=== PATIENT | female | born 1950 | race Two or more races ===

== ENCOUNTER 2024-02-18 13:28 | Emergency (ER) | payer MEDICARE, OTHER ==
[~2024-02-18] VITALS: Ht 165.1 cm; Wt 72.7 kg
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
[2024-02-18] MEDS ORDERED: METF-370 PO (17:25)
[2024-02-18] MEDS ORDERED: ACET-1080 PO (17:25)
[2024-02-18 17:30] VITALS: BP 110/59; PULSE 80; RESP 18; TEMP 98.6; O2SAT 96
== END 2024-02-18 17:29 | disposition home or self-care (01) ==
LOC: ER 13:28
DX: S46.812A Strain of other muscles, fascia and tendons at shoulder and upper arm level, left arm, initial encounter (principal); M17.12 Unilateral primary osteoarthritis, left knee; V43.52XA Car driver injured in collision with other type car in traffic accident, initial encounter; Y93.I9 Activity, other involving external motion; Y92.488 Other paved roadways as the place of occurrence of the external cause; Y99.8 Other external cause status
CPT/HCPCS: 73030; 73562

== ENCOUNTER 2024-03-10 11:45 | Emergency (ER) | payer MEDICARE, OTHER ==
[~2024-03-10] VITALS: Ht 165.1 cm; Wt 70.9 kg
[~2024-03-10 11:45] MED LIST: ACET-1080 PO; METF-370 PO
[2024-03-10 12:37] VITALS: BP 112/64; PULSE 74; RESP 18; TEMP 97.8; O2SAT 97
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
[2024-03-10] MEDS: ACETAMINOPHEN 325 MG TAB PO ONE (12:41)
--- NOTE | 2024-03-10 13:10 | DVH ---
INDICATION: NECK PAIN TO LEFT SHOULDER COMPARISON: None TECHNIQUE: 3 views of the cervical spine were obtained. FINDINGS: The cervical vertebral alignment is normal. The predental space is normal. There is intervertebral disc space narrowing at C5-C6. The intervertebral disc spaces are otherwise maintained. No acute fracture, vertebral compression deformity or aggressive osseous lesions. The imaged lung apices are unremarkable. IMPRESSION: 1. No acute fracture. 2. Mild intervertebral disc degeneration at C5-C6.
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
[2024-03-10] MEDS ORDERED: METH-1181 PO (13:23)
== END 2024-03-10 13:34 | disposition home or self-care (01) ==
LOC: ER 11:45
DX: G44.209 Tension-type headache, unspecified, not intractable (principal); M50.30 Other cervical disc degeneration, unspecified cervical region
CPT/HCPCS: 70450; 72040

== ENCOUNTER 2024-09-11 12:32 | Inpatient (IN) | payer MEDICARE, OTHER ==
[~2024-09-11] VITALS: Ht 165.1 cm; Wt 70.3 kg
[~2024-09-11 12:32] MED LIST changes: +METH-1181 PO
[2024-09-11 13:20] LABS: Urine Protein, UAD Negative (Negative)
[2024-09-11 13:30] LABS: Hematocrit 40.2 % (36.0-46.0); Hemoglobin 13.8 g/dL (12.2-16.2); Mean Corpuscular Hemoglobin 32.4 pg (28.0-32.0); Mean Corpuscular Volume 94.2 fL (80.0-100.0); Nucleated Red Blood Cells % 0.1 %
--- NOTE | 2024-09-11 13:33 | ED.PDOC ---
General HPI Comments 74 y/o F, with no prior medical history presents to the ED for CC of flank pain. Patient states, she has been experiencing right flank pain that radiates to her abdomen [id number] which has now worsened in the past x3days. Patient relays, associated symptoms of urinary frequency with decreased urinary output. Patient reports, being seen at [facility] for SS and being relayed to the ED for a further evaluation. Patient denies fever, chills, sweats, nausea, vomiting, or diarrhea. No other associated symptoms, modifiers, recent injuries or sick contacts present at this time. Chief Complaint: Flank Pain Time Seen by MD: 13:25 Primary Care Provider: Rupinder Adams notes: Nurses Notes, Medications, Allergies Allergies: Coded Allergies: NO KNOWN ALLERGIES (Unverified , 03/10/24) Home Meds Active Scripts Methocarbamol (Methocarbamol) 500 Mg Tab, 500 MG PO BID, #20 TAB Prov:SUSHMA KILPATRICK 03/10/24 Acetaminophen (Tylenol 8 Hour Arthritis) 650 Mg Tab, 650 MG PO TID, #30 TAB Prov:SUSHMA KILPATRICK 03/10/24 Metformin Hydrochloride (Metformin Hcl) 500 Mg Tab, 1 TAB PO BID, #20 TAB Prov:SUSHMA KILPATRICK 02/18/24 Acetaminophen (Tylenol 8 Hour Arthritis) 650 Mg Tab, 650 MG PO TID, #30 TAB Prov:SUSHMA KILPATRICK 02/18/24 Information Source: Patient Mode of Arrival: Ambulatory Severity: Moderate Inability to void: None Timing: Months Duration: Since onset Prehospital treatment: None Onset: Spontaneous Symptoms: Frequency History of: None Location: (R) Flank Modifying factors: None associated signs and symptoms: Flank Pain, Frequency Past Medical History PAST MEDICAL HISTORY: Denies Surgical History: Denies all surgeries PATTERN PUNCHER History: No Pertinent PATTERN PUNCHER History Family History Family History: Reviewed,noncontributory to illness Social History Smoker: Non-Smoker Alcohol: Denies ETOH Use Drugs: Denies Drug Use Lives In: Home Constitutional: denies: chills, diaphoresis, fatigue, fever, malaise, sweats, weakness, others EENTM: denies: blurred vision, double vision, ear bleeding, ear discharge, ear drainage, ear pain, ear ringing, eye pain, eye redness, hearing loss, mouth pain, mouth swelling, nasal discharge, nose bleeding, nose congestion, nose pain, photophobia, tearing, throat pain, throat swelling, voice changes, others Respiratory: denies: cough, hemoptysis, orthopnea, SOB at rest, shortness of breath, SOB with excertion, stridor, wheezing, others Cardiovascular: denies: chest pain, dizzy spells, diaphoresis, Dyspnea on exertion, edema, irregular heart beat, left arm pain, lightheadedness, palpitations, PND, syncope, others Gastrointestinal: denies: abdomen distended, abdominal pain, blood streaked bowels, constipated, diarrhea, dysphagia, difficulty swallowing, hematemesis, melena, nausea, poor appetite, poor fluid intake, rectal bleeding, rectal pain, vomiting, others Genitourinary: reports: flank pain, frequency; denies: abnormal vagina bleeding, burning, dyspareunia, dysuria, hematuria, incontinence, pain, , vagina discharge, urgency, others Neurological: denies: dizziness, fainting, headache, left sided numbness, left sided weakness, numbness, paresthesia, pre-existing deficit, right sided numbness, right sided weakness, seizure, speech problems, tingling, tremors, weakness, others Musculoskeletal: denies: back pain, gout, joint pain, joint swelling, muscle pain, muscle stiffness, neck pain, others Integumetry: denies: bruises, change in color, change in hair/nails, dryness, laceration, lesions, lumps, rash, wounds, others Allergic/Immunocompromised: denies: Difficulty Healing, Frequent Infections, Hives, Itching, others Hematologic/Lymphatic: denies: anemia, blood clots, easy bleeding, easy bruising, swollen glands, others Endocrine: denies: excessive hunger, excessive sweating, excessive thirst, excessive urination, flushing, intolerance to cold, intolerance to heat, unexplained weight gain, unexplained weight loss, others Psychiatric: denies: anxiety, bipolar disorder, depression, hopeless, panic disorder, schizophrenia, sleepless, suicidal, others All Other Systems: Reviewed and Negative Physical Exam General Appearance: No Apparent Distress, Normal HEENT: Normal ENT Inspection, Pharynx Normal Neck: Full Range of Motion, Non-Tender, Normal, Normal Inspection Respiratory: Chest Non-Tender, Lungs Clear, No Accessory Muscle Use, No Resp iratory Distress, Normal Breath Sounds Cardiovascular: No Edema, No Murmur, No Gallop, Normal Peripheral Pulses, Regular Rate/Rhythm Breast Exam: Deferred Gastrointestinal: No Organomegaly, Non Tender, No Pulsatile Mass, Normal Bowel Sounds, Soft Genitalia: Deferred Pelvic: Deferred Rectal: Deferred Extremities: No calf tenderness, Normal capillary refill, Normal inspection, Normal range of motion, Non-tender, No pedal edema Musculoskeletal : Apperance: Normal Neurologic: Alert, portable irrigation operator II-XII nml as Tested, No Motor Deficits, Normal Affect, Normal Mood, No Sensory Deficits Cerebellar Function: Normal Reflexes: Normal Skin: Dry, Normal Color, Warm Lymphatic: No Adenopathy Was a procedure done? Was a procedure done?: No Differential Diagnosis Kidney stone (Female): Pyelonephritis, Urinary obstruction, Urolithiasis Kidney stone (Male): N/A Penile/Scrotal: N/A Urinary Problem (Male): Other Urinary Problem (Female): UTI X-Ray, Labs, Meds, VS Vital Signs Date Time Temp Pulse Resp B/P (MAP) Pulse Ox O2 Delivery O2 Flow Rate FiO2 09/11/24 12:35 98.2 77 16 106/69 (81) 98 98.2 Lab Test 09/11/24 13:17 09/11/24 12:30 Range/Units White Blood Count 8.0 4.4-10.8 10^3/uL Red Blood Count 4.27 4.0-5.20 10^6/uL Hemoglobin 13.8 12.2-16.2 g/dL Hematocrit 40.2 36.0-46.0 % Mean Corpuscular Volume 94.2 80.0-100.0 fL Mean Corpuscular Hemoglobin 32.4 H 28.0-32.0 pg Mean Corpuscular Hemoglobin Concent 34.4 32.0-36.0 g/dL Red Cell Distribution Width 13.3 11.8-14.3 % Platelet Count 211 140-450 10^3/uL Mean Platelet Volume 9.8 6.9-10.8 fL Neutrophils (%) (Auto) 59.4 37.0-80.0 % Lymphocytes (%) (Auto) 31.0 10.0-50.0 % Monocytes (%) (Auto) 7.8 0.0-12.0 % Eosinophils (%) (Auto) 1.3 0.0-7.0 % Basophils (%) (Auto) 0.5 0.0-2.0 % Neutrophils # (Auto) 4.8 1.6-8.6 10 ^3/uL Lymphocytes # (Auto) 2.5 0.4-5.4 10 ^3/uL Monocytes # (Auto) 0.6 0-1.3 10 ^3/uL Eosinophils # (Auto) 0.1 0-0.8 10 ^3/uL Basophils # (Auto) 0 0-0.2 10 ^3/uL Nucleated Red Blood Cells 0.1 % Sodium Level 138 136-145 mmol/L Potassium Level 3.9 3.5-5.1 mmol/L Chloride Level 103 98-107 mmol/L Carbon Dioxide Level 27 20-31 mmol/L Anion Gap 8 5-15 Blood Urea Nitrogen 10 9-23 mg/dL Creatinine 0.88 0.550-1.02 mg/dL Glomerular Filtration Rate Calc 69 >90 mL/min BUN/Creatinine Ratio 11.4 10.0-20.0 Serum Glucose 108 H 74-106 mg/dL Calcium Level 10.4 8.7-10.4 mg/dL Urine Color Light-yellow Yellow Urine Clarity Clear Clear Urine pH 5.0 5.0-9.0 Urine Specific [place] 1.016 1.001-1.035 Urine Protein Negative Negative Urine Ketones Negative Negative Urine Blood Negative Negative /uL Urine Nitrite 2+ H Negative Urine Bilirubin Negative Negative Urine Urobilinogen Normal Negative mg/dL Urine Leukocyte Esterase Trace Negative /uL Urine RBC 1 0 - 4 /hpf Urine Microscopic WBC 11 H 0-5 /HPF Urine Squamous Epithelial Cells Few <5 /hpf Urine Bacteria Few H None Seen /hpf Urine Glucose Normal Normal mg/dL Time of 1ST Reevaluation: 13:55 Reevaluation 1ST: Unchanged Patient Education/Counseling: Diagnosis, Treatment Family Education/Counseling: No Family Present SEPSIS Sepsis Screen Date sepsis recognized/suspect: Sep 11, 2024 Time Sepsis recognized/suspect: 1234 Recent Procedure: No On Antibiotic Therapy: No Respiratory Rate >20: No Heart Rate >90: No Temp<36 C (96.8 F) or >38.3 C: No SBP <90 or MAP <65 mmHG: No New Acute Mental Status Change: No Is the patient on CPAP, BIPAP,: No Vital Signs Date Time Temp Pulse Resp B/P (MAP) Pulse Ox O2 Delivery O2 Flow Rate FiO2 09/11/24 12:35 98.2 77 16 106/69 (81) 98 98.2 Laboratory Tests Test 09/11/24 13:17 White Blood Count 8.0 10^3/uL (4.4-10.8) Departure 1 Departure Time of Disposition: 16:32 (Patient likely with a pyelonephritis. We will empirically cover patient with antibiotics and admit patient for further workup and expert consultation) Impression: Primary Impression: Pyelonephritis Disposition: ADMITTED INPATIENT Admit to: Med Surg Condition: Serious Critical Care Note Critical Care Time?: Yes Critical care comment: Acute pyelonephritis Authorized and Performed by: Dada Johnston MD Total critical care time: Approximately 38 minutes Due to a high probability of clinically significant, life threatening deterioration, the patient required my highest level of preparedness to intervene emergently and I personally spent this critical care time directly and personally managing the patient. This critical care time included obtaining a history; examining the patient; pulse oximetry; ordering and review of studies; arranging urgent treatment with development of a management plan; evaluation of patient's response to treatment; frequent reassessment; and, discussions with other providers. This critical care time was performed to assess and manage the high probability of imminent, life-threatening deterioration that could result in multi-organ failure. It was exclusive of separately billable procedures and treating other patients and teaching time. Please see my other sections and the rest of the note for further information on patient assessment and treatment. Stability Stability form required: No Heart Score Heart Score: Heart Score Response (Comments) Value History N/A 0 EKG N/A 0 Age N/A 0 Risk Factors N/A 0 Troponin N/A 0 Total 0 I personally scribed for DADA JOHNSTON MD ([email or web address]) on 09/11/24 at 13:33. Electronically submitted by Anabel Armenta ([email or web address]). DADA JOHNSTON MD Sep 11, 2024 13:33
[2024-09-11 13:37] LABS: Chloride 103 mmol/L (98-107); Potassium 3.9 mmol/L (3.5-5.1); Sodium 138 mmol/L (136-145)
[2024-09-11 13:38] LABS: Anion Gap 8 (5-15); Calcium 10.4 mg/dL (8.7-10.4); Carbon Dioxide 27 mmol/L (20-31)
[2024-09-11 13:43] LABS: BUN/Creatinine Ratio 11.4 (10.0-20.0); Blood Urea Nitrogen 10 mg/dL (9-23); Glucose 108 mg/dL (74-106)
[2024-09-11] MEDS: VANCOMYCIN 1GM/200ML PM 200 ML IV ONE (16:30)
[2024-09-11] MEDS: CEFEPIME 2GM/50ML NS 50 ML IV ONE (16:30)
[2024-09-11] MEDS: ONDANSETRON HCL 4 MG/2 ML VIAL IV ONE (20:30)
[2024-09-11] MEDS: HYDROmorphone HCL 2 MG/ML VL/or syr IV ONE (20:30)
--- NOTE | 2024-09-11 22:39 | DVH ---
CLINICAL HISTORY: flank pain TECHNIQUE: CT of the abdomen and pelvis was performed without intravenous contrast. This exam was per formed according to our departmental dose optimization program. Up-to-date CT equipment and radiation dose reduction techniques are utilized as appropriate. CTDI: 10.36 DLP: 548.57 WID: COMPARISON: None FINDINGS: Lower Thorax: Unremarkable. Liver and Biliary system: Grossly unremarkable unopacified liver. Prior cholecystectomy. No intrahep atic bile duct dilatation. Mild choledocho ectasia of the common bile duct and central intrahepatic b ile ducts. Spleen: Unremarkable. Adrenal Glands and Kidneys: Normal adrenal glands. No hydronephrosis or nephrolithiasis. There is dup lication of the right renal collecting system. Pancreas and Retroperitoneum: Unremarkable. Aorta and Major Vessels: Aortoiliac vessels are normal in caliber with mild calcified atherosclerotic plaque. Bowel, Mesentery and Peritoneal space: Normal caliber small and large bowel. Normal appendix. No free air or fluid collection. Pelvis: No pelvic lymphadenopathy. Urinary bladder is minimally distended. Prior hysterectomy. Abdominal wall and Osseous Structures: Multilevel lower thoracic and lumbar spondylosis. Moderate co mpression fracture, 50% height loss of the L1 vertebral body, chronic. Mild multilevel lower thoracic and lumbar spondylosis. No destructive osseous lesion. Dystrophic calcifications in the posterior ab dominal wall overlying the gluteal musculature. Small fat containing umbilical hernia. IMPRESSION: No bowel obstruction, fluid collection, or free air. Normal appendix. Duplication of the right renal collecting system. No hydronephrosis or nephrolithiasis. Chronic moderate compression fracture of L1 with 50% height loss.
[2024-09-11] MEDS ORDERED: ACETAMINOPHEN 325 MG TAB PO PRN (23:30)
[2024-09-11] MEDS ORDERED: ONDANSETRON HCL 4 MG/2 ML VIAL IV PRN (23:30)
--- NOTE | 2024-09-11 23:46 | DVHHP2 ---
History of Present Illness Reason for Visit: Flank pain History of Present Illness 74-year-old female presents for evaluation of flank pain. Patient endorses a three day history of right-sided flank pain with associated urinary frequency. Denies fever or chills. No nausea or vomiting. No other acute complaints. Past Medical History Diabetes mellitus Past Surgical History Denies Family History Noncontributory Smoke: No ALCOHOL: none Drugs: None Lives: with Family Review of Systems Review of Systems Review of systems are currently negative otherwise addressed in HPI. Allergies: Coded Allergies: NO KNOWN ALLERGIES (Unverified , 03/10/24) Medications Current Medications Medications Dose Ordered Sig/Nicolas Route Start Time Stop Time Status Last Admin Dose Admin Ceftriaxone Sodium 50 ml @ 100 mls/hr DAILY@09 IV 09/12/24 09:00 UNV Acetaminophen/ Hydrocodone Bitart 1 tab Q4HP PRN PO 09/11/24 23:30 UNV Ondansetron HCl 4 mg Q4HP PRN IV 09/11/24 23:30 UNV Acetaminophen 650 mg Q6HP PRN PO 09/11/24 23:30 UNV Exam Vital Signs Vital Signs Date Time Temp Pulse Resp B/P (MAP) Pulse Ox O2 Delivery O2 Flow Rate FiO2 09/11/24 20:14 97.4 65 20 127/54 (78) 98 97.4 Exam Gen: 74-year-old female in no apparent distress Skin: Warm, dry, normal color and texture, no rash. HEENT: Normocephalic atraumatic, mucous membranes moist and pink. Neck: Cervical and supraclavicular nodes normal without enlargement, trachea is midline, thyroid gland is normal without masses. Pulmonary: Clear to auscultation and percussion bilaterally. Cardiac: Regular rate and rhythm. No murmur Abdomen: Soft, nontender, nondistended, bowel sounds present all 4 quadrants, no guarding, no rigidity, no organomegaly. Extremities: No cyanosis, clubbing, no edema Neuro: Cranial nerves II through XII grossly intact, normal affect and speech, no focal motor deficits. Labs/Xrays ORDERING PHYSICIAN: THERESA DIAZ PROCEDURE(s): ABPL - CT AB PEL WO CON-NO ORAL OR IV REASON: flank pain ORDER NUMBER(s): [id number], ACCESSION NUMBER(s): [id number] CLINICAL HISTORY: flank pain TECHNIQUE: CT of the abdomen and pelvis was performed without intravenous contrast. This exam was performed according to our departmental dose optimization program. Up-to-date CT equipment and radiation dose reduction techniques are utilized as appropriate. CTDI: 10.36 DLP: 548.57 WID: COMPARISON: None FINDINGS: Lower Thorax: Unremarkable. Liver and Biliary system: Grossly unremarkable unopacified liver. Prior cholecystectomy. No intrahepatic bile duct dilatation. Mild choledocho ectasia of the common bile duct and central intrahepatic bile ducts. Spleen: Unremarkable. Adrenal Glands and Kidneys: Normal adrenal glands. No hydronephrosis or nephrolithiasis. There is duplication of the right renal collecting system. Pancreas and Retroperitoneum: Unremarkable. Aorta and Major Vessels: Aortoiliac vessels are normal in caliber with mild calcified atherosclerotic plaque. Bowel, Mesentery and Peritoneal space: Normal caliber small and large bowel. Normal appendix. No free air or fluid collection. Pelvis: No pelvic lymphadenopathy. Urinary bladder is minimally distended. Prior hysterectomy. Abdominal wall and Osseous Structures: Multilevel lower thoracic and lumbar spondylosis. Moderate compression fracture, 50% height loss of the L1 vertebral body, chronic. Mild multilevel lower thoracic and lumbar spondylosis. No destructive osseous lesion. Dystrophic calcifications in the posterior abdominal wall overlying the gluteal musculature. Small fat containing umbilical hernia. IMPRESSION: No bowel obstruction, fluid collection, or free air. Normal appendix. Duplication of the right renal collecting system. No hydronephrosis or nephrolithiasis. Chronic moderate compression fracture of L1 with 50% height loss. ATED BY: KATHARINE MOREIRA MD DICTATED DATE/TIME: 09/11/24 4637 Labs Test 09/11/24 13:17 09/11/24 12:30 Range/Units White Blood Count 8.0 4.4-10.8 10^3/uL Red Blood Count 4.27 4.0-5.20 10^6/uL Hemoglobin 13.8 12.2-16.2 g/dL Hematocrit 40.2 36.0-46.0 % Mean Corpuscular Volume 94.2 80.0-100.0 fL Mean Corpuscular Hemoglobin 32.4 H 28.0-32.0 pg Mean Corpuscular Hemoglobin Concent 34.4 32.0-36.0 g/dL Red Cell Distribution Width 13.3 11.8-14.3 % Platelet Count 211 140-450 10^3/uL Mean Platelet Volume 9.8 6.9-10.8 fL Neutrophils (%) (Auto) 59.4 37.0-80.0 % Lymphocytes (%) (Auto) 31.0 10.0-50.0 % Monocytes (%) (Auto) 7.8 0.0-12.0 % Eosinophils (%) (Auto) 1.3 0.0-7.0 % Basophils (%) (Auto) 0.5 0.0-2.0 % Neutrophils # (Auto) 4.8 1.6-8.6 10 ^3/uL Lymphocytes # (Auto) 2.5 0.4-5.4 10 ^3/uL Monocytes # (Auto) 0.6 0-1.3 10 ^3/uL Eosinophils # (Auto) 0.1 0-0.8 10 ^3/uL Basophils # (Auto) 0 0-0.2 10 ^3/uL Nucleated Red Blood Cells 0.1 % Sodium Level 138 136-145 mmol/L Potassium Level 3.9 3.5-5.1 mmol/L Chloride Level 103 98-107 mmol/L Carbon Dioxide Level 27 20-31 mmol/L Anion Gap 8 5-15 Blood Urea Nitrogen 10 9-23 mg/dL Creatinine 0.88 0.550-1.02 mg/dL Glomerular Filtration Rate Calc 69 >90 mL/min BUN/Creatinine Ratio 11.4 10.0-20.0 Serum Glucose 108 H 74-106 mg/dL Calcium Level 10.4 8.7-10.4 mg/dL Urine Color Light-yellow Yellow Urine Clarity Clear Clear Urine pH 5.0 5.0-9.0 Urine Specific [place] 1.016 1.001-1.035 Urine Protein Negative Negative Urine Ketones Negative Negative Urine Blood Negative Negative /uL Urine Nitrite 2+ H Negative Urine Bilirubin Negative Negative Urine Urobilinogen Normal Negative mg/dL Urine Leukocyte Esterase Trace Negative /uL Urine RBC 1 0 - 4 /hpf Urine Microscopic WBC 11 H 0-5 /HPF Urine Squamous Epithelial Cells Few <5 /hpf Urine Bacteria Few H None Seen /hpf Urine Glucose Normal Normal mg/dL SEPSIS Sepsis Screen Date sepsis recognized/suspect: Sep 11, 2024 Time Sepsis recognized/suspect: 5 Recent Procedure: No On Antibiotic Therapy: No Respiratory Rate >20: No Heart Rate >90: No Temp<36 C (96.8 F) or >38.3 C: No SBP <90 or MAP <65 mmHG: No New Acute Mental Status Change: No Is the patient on CPAP, BIPAP,: No Physician Orders Ct Ab Pel Wo Con-No Oral Or Iv (09/11/24 20:57) Basic Metabolic Panel (09/12/24 04:00) Urine Bacterial Culture (09/11/24 23:30) Ceftriaxone 1gm/50ml D5w (Rocephin) (09/12/24 09:00) Consistent Carb(Ccho)Diabetes (09/12/24 Breakfast) Admit (09/11/24 23:30) Hydrocodone-Acet 5/325mg Tab (Norris /32 (09/11/24 23:30) Ondansetron Hcl (Zofran) (09/11/24 23:30) Condition: Stable (09/11/24 23:30) Acetaminophen Tablet (Tylenol Tablet) (09/11/24 23:30) Bedrest With Bathroom Privileg (09/11/24 23:30) Vital Signs Date Time Temp Pulse Resp B/P (MAP) Pulse Ox O2 Delivery O2 Flow Rate FiO2 09/11/24 20:14 97.4 65 20 127/54 (78) 98 97.4 Laboratory Tests Test 09/11/24 13:17 White Blood Count 8.0 10^3/uL (4.4-10.8) Assessment/Plan Assessment/Plan Assessment Acute pyelonephritis Plan Admit the patient to [facility] to the hospitalist [place] Urine bacterial culture pending Pain management Continue treatment per orders. Plan discussed with: Patient My Orders Orders - THERESA DIAZ Procedure Category Date Status Time Ct Ab Pel Wo Con-No CT 09/11/24 Resulted Oral Or Iv 20:57 Basic Metabolic Panel LAB 09/12/24 Verified 04:00 Urine Bacterial TUAN 09/11/24 Logged Culture 23:30 Ceftriaxone 1gm/50ml PHA 09/12/24 Logged D5w (Rocephin) 09:00 Consistent DIET 09/12/24 Transmitted Carb(Ccho)Diabetes Breakfast Admit ADMIT 09/11/24 Transmitted 23:30 Hydrocodone-Acet PHA 09/11/24 Logged 5/325mg Tab (Norris 23:30 Ondansetron Hcl PHA 09/11/24 Logged (Zofran) 23:30 Condition: Stable CHRISTIN 09/11/24 In Process 23:30 Acetaminophen Tablet PHA 09/11/24 Logged (Tylenol Tablet) 23:30 Bedrest With Bathroom CHRISTIN 09/11/24 In Process Privileg 23:30 Date of Service: Sep 11, 2024 Billing Provider: THERESA DIAZ Common Visit Codes: [id number] INP/OBS CARE (MOD) THERESA DIAZ Sep 11, 2024 23:46
[2024-09-12 06:03] LABS: Anion Gap 8 (5-15); Carbon Dioxide 26 mmol/L (20-31); Chloride 102 mmol/L (98-107); Potassium 4.0 mmol/L (3.5-5.1)
[2024-09-12 06:05] LABS: Calcium 9.3 mg/dL (8.7-10.4)
[2024-09-12 06:09] LABS: BUN/Creatinine Ratio 13.9 (10.0-20.0); Blood Urea Nitrogen 11 mg/dL (9-23); Glucose 95 mg/dL (74-106)
[2024-09-12 06:12] LABS: Sodium 136 mmol/L (136-145)
[2024-09-12 06:45] VITALS: BP 122/72; PULSE 58; RESP 17; TEMP 98; O2SAT 96
[2024-09-12] MEDS: cefTRIAXone 1GM/50ML D5W 50 ML IV SCH (08:24)
[2024-09-12] MEDS: HYDROcodone-ACET 5/325MG TAB PO PRN (08:25)
[2024-09-12] MEDS ORDERED: CIPR-173 PO (08:39)
--- NOTE | 2024-09-12 08:42 | DVHDS2 ---
Discharge Summary Date of Admission Sep 11, 2024 at 23:30 Date of Discharge: Sep 12, 2024 Labs/Diagnostic Data: Laboratory Results Test 09/12/24 04:50 09/11/24 13:17 09/11/24 12:30 Sodium Level 136 mmol/L (136-145) Potassium Level 4.0 mmol/L (3.5-5.1) Chloride Level 102 mmol/L (98-107) Carbon Dioxide Level 26 mmol/L (20-31) Anion Gap 8 (5-15) Blood Urea Nitrogen 11 mg/dL (9-23) Creatinine 0.79 mg/dL (0.550-1.02) Glomerular Filtration Rate Calc 79 mL/min (>90) BUN/Creatinine Ratio 13.9 (10.0-20.0) Serum Glucose 95 mg/dL (74-106) Calcium Level 9.3 mg/dL (8.7-10.4) White Blood Count 8.0 10^3/uL (4.4-10.8) Red Blood Count 4.27 10^6/uL (4.0-5.20) Hemoglobin 13.8 g/dL (12.2-16.2) Hematocrit 40.2 % (36.0-46.0) Mean Corpuscular Volume 94.2 fL (80.0-100.0) Mean Corpuscular Hemoglobin 32.4 pg (28.0-32.0) Mean Corpuscular Hemoglobin Concent 34.4 g/dL (32.0-36.0) Red Cell Distribution Width 13.3 % (11.8-14.3) Platelet Count 211 10^3/uL (140-450) Mean Platelet Volume 9.8 fL (6.9-10.8) Neutrophils (%) (Auto) 59.4 % (37.0-80.0) Lymphocytes (%) (Auto) 31.0 % (10.0-50.0) Monocytes (%) (Auto) 7.8 % (0.0-12.0) Eosinophils (%) (Auto) 1.3 % (0.0-7.0) Basophils (%) (Auto) 0.5 % (0.0-2.0) Neutrophils # (Auto) 4.8 10 ^3/uL (1.6-8.6) Lymphocytes # (Auto) 2.5 10 ^3/uL (0.4-5.4) Monocytes # (Auto) 0.6 10 ^3/uL (0-1.3) Eosinophils # (Auto) 0.1 10 ^3/uL (0-0.8) Basophils # (Auto) 0 10 ^3/uL (0-0.2) Nucleated Red Blood Cells 0.1 % Urine Color Light-yellow (Yellow) Urine Clarity Clear (Clear) Urine pH 5.0 (5.0-9.0) Urine Specific [place] 1.016 (1.001-1.035) Urine Protein Negative (Negative) Urine Ketones Negative (Negative) Urine Blood Negative /uL (Negative) Urine Nitrite 2+ (Negative) Urine Bilirubin Negative (Negative) Urine Urobilinogen Normal mg/dL (Negative) Urine Leukocyte Esterase Trace /uL (Negative) Urine RBC 1 /hpf (0 - 4) Urine Microscopic WBC 11 /HPF (0-5) Urine Squamous Epithelial Cells Few /hpf (<5) Urine Bacteria Few /hpf (None Seen) Urine Glucose Normal mg/dL (Normal) Other Laboratory Tests 09/12/24 04:50 09/11/24 13:17 Brief Hx & Hospital Course: Final diagnoses: Acute pyelonephritis right-sided UTI Type 2 diabetes Chronic compression fracture of the L1 Back pain Hospital course: 74-year-old female who was admitted for right flank pain for 3 days UA showed UTI The CT scan of the abdomen showed duplication of the right renal collecting system but no hydronephrosis or nephrolithiasis She has chronic moderate compression fracture of the L1 with 50% height loss She was given IV antibiotics here She is stable She can be discharged home to continue p.o. treatment with antibiotics for 7 days and follow up with her primary care physician as soon as possible and resume the home medications Condition at Discharge: Stable Final Diagnosis/Problems List UTI Right pyelonephritis Type 2 diabetes Discharge Disposition: Home SNF Discharge Will this Physician continue t: No Discharge Instruct/Medications Diet: Consistent carbohydrate Activity: No Restrictions, As Tolerated Follow Up/Referral: PCP as soon as possible Medications: Cipro 500 mg twice a day for 7 days Scheduled Acetaminophen (Tylenol 8 Hour Arthritis), 650 MG PO TID Acetaminophen (Tylenol 8 Hour Arthritis), 650 MG PO TID Ciprofloxacin Hcl (Cipro), 1 TAB PO BID Metformin Hydrochloride (Metformin Hcl), 1 TAB PO BID Methocarbamol (Methocarbamol), 500 MG PO BID Discharge Statement: "Patient was advised to return to the ER or call 911 if any headaches, dizziness, shortness of breath, chest pain, abdominal pain, bleeding, fevers, or worsening of medical condition. Patient was counseled about treatment plan, medications, possible side effects, patientverbalized understanding. All questions were answered to the best of my ability. This discharge took greater then 30 minutes in planning, reviewing documentation, counseling the patient, and discussing with other team members." ASSESSMENT ASSESSMENT Assessment UTI Right pyelonephritis Type 2 diabetes Date of Service: Sep 12, 2024 Billing Provider: ROSE CASTANON MD Common Visit Codes: NOT BILLABLE ROSE CASTANON MD Sep 12, 2024 08:42
[2024-09-12 09:21] VITALS: BP 108/78; PULSE 78; RESP 18; TEMP 98; O2SAT 98
[2024-09-12] MEDS: SODIUM CHLORIDE 0.9% 500 ML IV ONE (11:00)
== END 2024-09-12 12:00 | disposition home or self-care (01) | DRG 690 ==
LOC: ER 12:32 → OVERFLOW 23:30
PROVIDERS: ADMIT Internal Medicine Geriatric Medicine; ATTEND Internal Medicine Geriatric Medicine
DX: N10 Acute pyelonephritis (principal); M48.56XA Collapsed vertebra, not elsewhere classified, lumbar region, initial encounter for fracture; E11.9 Type 2 diabetes mellitus without complications; Z79.84 Long term (current) use of oral hypoglycemic drugs; Z79.899 Other long term (current) drug therapy
CPT/HCPCS: 36415; 74176; 80048; 81001; 85025; 87086; 87088; 87186; G0378